=== PATIENT | female | born 1990 | race Two or more races ===

== ENCOUNTER 2017-10-19 10:00 | Observation (INO) | payer MEDICAID ==
[2017-10-19] MEDS ORDERED: PREN-96 PO (23:24)
== END 2017-10-19 13:40 | disposition home or self-care (01) | DRG 566 ==
LOC: LDRP 10:00
PROVIDERS: ADMIT Specialist; ATTEND Specialist
DX: O62.9 Abnormality of forces of labor, unspecified (principal); Z3A.39 39 weeks gestation of pregnancy
CPT/HCPCS: 59025; 76818; 81002; G0378

== ENCOUNTER 2017-10-19 21:30 | Inpatient (IN) | payer MEDICAID ==
[~2017-10-19] VITALS: Ht 165.1 cm; Wt 95.3 kg
[2017-10-19] MEDS ORDERED: LACT. RINGERS/OXYTOCIN 20UNITS 1,000 ML IV SCH (22:22)
[2017-10-19] MEDS: LACTATED RINGER'S 1,000 ML IV SCH (22:22)
[2017-10-19] MEDS ORDERED: METHYLERGONOVINE MALEATE 0.2 MG/ML AMP IM PRN (22:30)
[2017-10-19] MEDS ORDERED: NALBUPHINE HCL 10 MG/1ml INJECTION IV PRN (22:30)
[2017-10-19] MEDS ORDERED: WITCH HAZEL-GLYCERIN PAD TOP PRN (22:30)
[2017-10-19] MEDS ORDERED: PHISODERM TOP SOLN 240ML BTL TOP PRN (22:30)
[2017-10-19] MEDS ORDERED: PROMETHAZINE HCL 25 MG/ML 1ML IV PRN (22:30)
[2017-10-19] MEDS ORDERED: DERMOPLAST 60ML BOTTLE TOP PRN (22:30)
[2017-10-19] MEDS ORDERED: LIDOCAINE 2% (LOCAL ANESTH.) PF 5ml SDV ID PRN (22:30)
[2017-10-19] MEDS ORDERED: DERMOPLAST 60ML BOTTLE TOP ONE (22:36)
[2017-10-19] MEDS ORDERED: WITCH HAZEL-GLYCERIN PAD TOP ONE (22:37)
[2017-10-19] MEDS ORDERED: LACT. RINGERS/OXYTOCIN 20UNITS 1,000 ML IV ONE (22:37)
[2017-10-19] MEDS ORDERED: PHISODERM TOP SOLN 240ML BTL TOP ONE (22:37)
[2017-10-19] MEDS ORDERED: METHYLERGONOVINE MALEATE 0.2 MG/ML AMP IM ONE (22:37)
[2017-10-19] MEDS ORDERED: LIDOCAINE 2% (LOCAL ANESTH.) PF 5ml SDV ONE (22:43)
[2017-10-19 23:14] LABS: Alcohol, Urine < 3.0 mg/dL (0-5); Amphetamine Screen, Urine NEGATIVE (NEGATIVE); Barbiturate Scree,Urine NEGATIVE (NEGATIVE); Benzodiazephine Screen, Urine NEGATIVE (NEGATIVE); Cannabinoid Screen, Urine NEGATIVE (NEGATIVE); Cocaine Screen, Urine NEGATIVE (NEGATIVE); Opiate Scree,Urine NEGATIVE (NEGATIVE); Phencyclidine Screen, Urine NEGATIVE (NEGATIVE)
[2017-10-19 23:15] LABS: Basophils # (auto) 0 uL; Basophils % (auto) 0.3 % (0.0-2.0); Eosinophils # (auto) 0.3 uL; Hematocrit 36.1 % (36.0-46.0); Lymphocytes # (auto) 2.4 uL; Mean Corpuscular Hemoglobin 31.4 pg (28.0-32.0); Mean Corpuscular Hgb Conc. 33.2 g/dL (32.0-36.0); Mean Corpuscular Volume 94.6 fL (80.0-100.0); Monocytes # (auto) 1.1 uL; Neutrophils # (auto) 9.5 uL; Neutrophils % (auto) 71.7 % (37.0-80.0); Platelet Count (auto) 341 10^3/uL (140-450); Red Blood Cells 3.82 10^6/uL (4.0-5.20); Red Cell Distribution Width 13.4 % (11.8-14.3); White Blood Cell 13.2 10^3/uL (4.4-10.8)
[2017-10-19 23:19] LABS: Albumin 2.7 g/dL (3.4-5.0); BUN/Creatinine Ratio 15.6; Bilirubin, Total 0.2 mg/dL (0.2-1.0); Calcium 8.7 mg/dL (8.5-10.1); Total Protein 6.5 g/dL (6.4-8.2)
[2017-10-19 23:21] LABS: INR 0.85 (0.9-1.15); Partial Thromboplastin Time 27.1 sec (23.78-33.04); Prothrombin Time 9.2 sec (9.27-12.13)
[2017-10-19] MEDS ORDERED: PREN-96 PO (23:24)
[2017-10-19 23:32] LABS: Urine Bacteria NONE SEEN /hpf (None Seen); Urine Blood 1+ /uL (Negative); Urine Mucus FEW (None Seen); Urine Specific Gravity 1.026 (1.001-1.035); Urine WBC 4 /hpf (0 - 5)
[2017-10-20] MEDS ORDERED: fentaNYL W ROPIVACAINE 150 ML EPI SCH (00:15)
[2017-10-20] MEDS ORDERED: NALOXONE HCL 0.4 MG/ML VIAL IV ONE (00:15)
[2017-10-20] MEDS ORDERED: fentaNYL CITRATE 100 MCG/2 ML VL IV ONE (00:15)
[2017-10-20] MEDS ORDERED: ePHEDrine SULFATE 50 MG/ML AMP IV ONE (00:15)
[2017-10-20] MEDS ORDERED: fentaNYL CITRATE 100 MCG/2 ML VL ONE (00:20)
[2017-10-20] MEDS ORDERED: NALOXONE HCL 0.4 MG/ML VIAL ONE (00:20)
[2017-10-20] MEDS ORDERED: ePHEDrine SULFATE 50 MG/ML AMP ONE (00:21)
[2017-10-20] MEDS ORDERED: fentaNYL W ROPIVACAINE 150 ML EPI ONE (00:21)
[2017-10-20] MEDS ORDERED: LIDOCAINE HCL 2 %PF INJ 10ML AMP IJ ONE (00:21)
[2017-10-20] MEDS ORDERED: IBUPROFEN 600 MG TAB PO ONE (05:04)
[2017-10-20] MEDS: LACTATED RINGER'S 1,000 ML IV SCH (06:22)
[2017-10-20 07:00] VITALS: BP 131/75
[2017-10-20] MEDS: DOCUSATE CALCIUM 240 MG CAP PO SCH (10:00)
[2017-10-20 10:47] VITALS: BP 134/70
[2017-10-20] MEDS: IBUPROFEN 600 MG TAB PO PRN ×2 (13:00→16:55)
[2017-10-20 15:00] VITALS: BP 125/67
[2017-10-20 19:30] VITALS: BP 123/75
[2017-10-20 23:10] VITALS: BP 121/73
[2017-10-21] MEDS: IBUPROFEN 600 MG TAB PO PRN (02:00)
[2017-10-21 05:11] LABS: RPR Non Reactive (Non Reactive)
[2017-10-21 07:00] VITALS: BP 120/71
[2017-10-21] MEDS: DOCUSATE CALCIUM 240 MG CAP PO SCH (10:41)
[2017-10-21 11:00] VITALS: BP_SYST 131; BP_SYST 141; BP_DIAS 84; BP_DIAS 85
== END 2017-10-21 11:00 | disposition home or self-care (01) | DRG 560 ==
LOC: LDRP 21:30 → OBSVTOIN 21:30 → LDRP 10-20 00:19
PROVIDERS: ADMIT Specialist; ATTEND Specialist
PROC: 10E0XZZ Delivery of Products of Conception, External Approach (ICD-10-PCS; principal; 2017-10-20)
PROC: 10907ZC Drainage of Amniotic Fluid, Therapeutic from Products of Conception, Via Natural or Artificial Opening (ICD-10-PCS; 2017-10-20)
PROC: 0KQM0ZZ Repair Perineum Muscle, Open Approach (ICD-10-PCS; 2017-10-20)
PROC: 3E0R3BZ Introduction of Anesthetic Agent into Spinal Canal, Percutaneous Approach (ICD-10-PCS; 2017-10-20)
PROC: 00HU33Z Insertion of Infusion Device into Spinal Canal, Percutaneous Approach (ICD-10-PCS; 2017-10-20)
DX: O69.81X0 Labor and delivery complicated by cord around neck, without compression, not applicable or unspecified (principal); O72.1 Other immediate postpartum hemorrhage; Z37.0 Single live birth; O70.1 Second degree perineal laceration during delivery; O99.284 Endocrine, nutritional and metabolic diseases complicating childbirth; E03.9 Hypothyroidism, unspecified; Z3A.40 40 weeks gestation of pregnancy
CPT/HCPCS: 36415; 51702; 59025; 59409; 62282; 80053; 80307; 81001; 85025; 85610; 85730; 86592; 86850; 86900; 86901; 96365; 96366; J2590; J3010